=== PATIENT | male | born 1945 | race African-American/Black ===

== ENCOUNTER 2018-01-03 19:23 | Emergency (ER) | payer OTHER ==
[~2018-01-03] VITALS: Ht 188 cm; Wt 86.2 kg
[2018-01-03] MEDS ORDERED: FUROSEMIDE20 M1 ORAL (19:40)
[2018-01-03] MEDS ORDERED: JANUVIA25 MG ORAL (19:40)
[2018-01-03] MEDS ORDERED: ISOSORBIDE DINIT5 MG ORAL (19:40)
[2018-01-03] MEDS ORDERED: ASPIR-LOW81 MG ORAL (19:40)
[2018-01-03] MEDS ORDERED: METFORMIN HCL1000 M1 ORAL (19:40)
[2018-01-03] MEDS ORDERED: CARVEDILOL12.5 MG ORAL (19:40)
[2018-01-03] MEDS ORDERED: SPIRONOLACTONE25 MG ORAL (19:40)
[2018-01-03] MEDS ORDERED: BENICAR40 MG ORAL (19:40)
[2018-01-03] MEDS ORDERED: POTASSIUM CHLO20 ME2 ORAL (19:40)
--- NOTE | 2018-01-03 19:44 | Emergency Room Report ---
History of Present Illness General Chief Complaint: Chest Pain Present Illness HPI Mr. Harrison is a very pleasant 72-year-old male with history of non-insulin- dependent diabetes and hypertension who presents with chest pain for the last day. He's had right and left-sided chest pain radiating to her left arm. Pain is sharp. Pain is worse with movement. Pain is has persisted for several hours. Pain is moderately severe. Denies shortness of breath or palpitations. Has not had history of NV or coronary artery disease. Possible history of "CHF". He is followed by physician and [facility]. He is has a stress test schedule a marketing content coordinator next month. Family history of cardiac disease. Mother lived to age of 94 with history of lung disease. Siblings are healthy. Allergies: Coded Allergies: No Known Allergies (Unverified , 01/03/18) Patient History Past Medical History: DM, HTN, other - ?CHF Pertinent Family History: none Social History: Reports: alcohol use; Denies: smoking Social History Narrative recently , moved to [place] from [facility] a few months prior, retired electrician supervisor [employer] Review of Systems Constitutional: Denies: fever, malaise Cardiovascular: Reports: chest pain All Other Systems: negative except mentioned in HPI Physical Exam Vital Signs Date Time Temp Pulse Resp B/P (MAP) Pulse Ox O2 Delivery O2 Flow Rate FiO2 01/03/18 19:33 97.7 76 14 140/82 100 Room Air 97.7 Sp02 EP Interpretation: reviewed, normal General Appearance: no apparent distress, alert, GCS 15, non-toxic, other - looks younger than stated age Head: normocephalic, atraumatic Eyes: bilateral eye normal inspection ENT: hearing grossly normal, normal pharynx, no angioedema, normal voice Neck: full range of motion, supple, no meningismus, no bony tend, supple/symm/ no masses Respiratory: chest non-tender, lungs clear, normal breath sounds, no rhonchi, no respiratory distress, no retraction, no accessory muscle use, speaking full sentences Cardiovascular #1: regular rate, rhythm, no edema, no gallop, no JVD, no murmur , no rub Cardiovascular #2: 2+ radial (R), 2+ radial (L), 2+ dorsalis pedis (R), 2+ dorsalis pedis (L) Gastrointestinal: normal bowel sounds, non tender, soft, no bruit, non- distended, no guarding, no rebound Rectal: deferred Genitourinary: normal inspection Musculoskeletal: back normal, gait/station normal, normal range of motion, non- tender, calf tenderness Neurologic: normal inspection, alert, oriented x3, responsive, motor strength/ tone normal, sensory intact, normal gait, speech normal, grossly normal Psychiatric: judgement/insight normal, memory normal, mood/affect normal, other - pleasant articulate smiling Skin: normal color, no rash, warm/dry, well hydrated Medical Decision Making Diagnostic Impression: Primary Impression: Chest pain ER Course Mr. Harrison presents with chest pain. I recommended admission to evaluate for ACS/CAD. Patient politely declined. He and understood instructions to call 911 if symptoms returned. He will see his marketing content coordinator tomorrow if possible Labs Test 01/03/18 19:37 White Blood Count 6.1 K/UL (4.8-10.8) Red Blood Count 4.45 M/UL (4.70-6.10) Hemoglobin 14.4 G/DL (14.2-18.0) Hematocrit 41.9 % (42.0-52.0) Mean Corpuscular Volume 94 FL (80-99) Mean Corpuscular Hemoglobin 32.3 PG (27.0-31.0) Mean Corpuscular Hemoglobin Concent 34.3 G/DL (32.0-36.0) Red Cell Distribution Width 11.0 % (11.6-14.8) Platelet Count 182 K/UL (150-450) Mean Platelet Volume 7.0 FL (6.5-10.1) Neutrophils (%) (Auto) 57.9 % (45.0-75.0) Lymphocytes (%) (Auto) 25.9 % (20.0-45.0) Monocytes (%) (Auto) 11.0 % (1.0-10.0) Eosinophils (%) (Auto) 4.1 % (0.0-3.0) Basophils (%) (Auto) 1.1 % (0.0-2.0) Sodium Level 142 MMOL/L (136-145) Potassium Level 4.0 MMOL/L (3.5-5.1) Chloride Level 105 MMOL/L (98-107) Carbon Dioxide Level 29 MMOL/L (21-32) Anion Gap 9 mmol/L (5-15) Blood Urea Nitrogen 21 mg/dL (7-18) Creatinine 1.4 MG/DL (0.55-1.30) Estimat Glomerular Filtration Rate mL/min (>60) Glucose Level 89 MG/DL (74-106) Calcium Level 9.7 MG/DL (8.5-10.1) Total Bilirubin 0.7 MG/DL (0.2-1.0) Aspartate Amino Transf (AST/SGOT) 33 U/L (15-37) Alanine Aminotransferase (ALT/SGPT) 39 U/L (12-78) Alkaline Phosphatase 106 U/L (46-116) Troponin I 1.133 ng/mL (0.000-0.056) Total Protein 7.9 G/DL (6.4-8.2) Albumin 4.1 G/DL (3.4-5.0) Globulin 3.8 g/dL Albumin/Globulin Ratio 1.1 (1.0-2.7) Lab Results Impression elevated trop EKG Diagnostic Results EKG Time: 19:32 Rate: normal Rhythm: NSR ST Segments: no acute changes Other Impression rate 70 bpm nl axis prolonged AV interval nl QT interval no ST elevation no signs of ischemia poor R wave progression Chest X-Ray Diagnostic Results Chest X-Ray Diagnostic Results : Chest X-Ray Ordered: Yes # of Views/Limited/Complete: 1 View Indication: Chest Pain Interpretation: no consolidation, no effusion, no pneumothorax, no acute cardiopulmonary disease Impression: No acute disease Electronically Signed by: radiology interpreted by Last Vital Signs Date Time Temp Pulse Resp B/P (MAP) Pulse Ox O2 Delivery O2 Flow Rate FiO2 01/03/18 19:33 97.7 76 14 140/82 100 Room Air 97.7 Disposition: AGAINST MEDICAL ADVICE Condition: Stable Valentine Pritchard MD Jan 03, 2018 19:44
[2018-01-03 19:48] VITALS: BP 131/75
[2018-01-03 20:20] LABS: ANION GAP 9 mmol/L (5-15); BLOOD UREA NITROGEN 21 mg/dL (7-18); CALCIUM 9.7 MG/DL (8.5-10.1); CARBON DIOXIDE 29 MMOL/L (21-32); CHLORIDE 105 MMOL/L (98-107); CREATININE 1.4 MG/DL (0.55-1.30); SODIUM 142 MMOL/L (136-145)
[2018-01-03 20:25] LABS: ALANINE AMINOTRANSFERASE 39 U/L (12-78); ALBUMIN 4.1 G/DL (3.4-5.0); ALBUMIN/GLOBULIN RATIO 1.1 (1.0-2.7); ALKALINE PHOSPHATASE 106 U/L (46-116); ASPARTATE AMINO TRANSFERASE 33 U/L (15-37); BILIRUBIN,TOTAL 0.7 MG/DL (0.2-1.0)
[2018-01-03 20:32] LABS: BASOPHILS % (AUTO) 1.1 % (0.0-2.0); EOSINOPHILS % (AUTO) 4.1 % (0.0-3.0); HEMATOCRIT 41.9 % (42.0-52.0); HEMOGLOBIN 14.4 G/DL (14.2-18.0); LYMPHOCYTES % (AUTO) 25.9 % (20.0-45.0); MEAN CORPUSCULAR VOLUME 94 FL (80-99); NEUTROPHILS % (AUTO) 57.9 % (45.0-75.0); PLATELET COUNT 182 K/UL (150-450); RED BLOOD COUNT 4.45 M/UL (4.70-6.10); WHITE BLOOD COUNT 6.1 K/UL (4.8-10.8)
[2018-01-03 20:59] VITALS: BP 125/64
[2018-01-03 21:54] VITALS: BP 122/62
--- NOTE | 2018-01-04 10:37 | Diagnostic Imaging Report ---
Indication: Chest pain Comparison: None A single view chest radiograph was obtained. Findings: Cardiomediastinal appearance is within normal limits for age. The lungs are clear. Pulmonary vascularity is appropriate. The diaphragmatic contour is smooth and costophrenic angles are sharp. No pleural effusions are identified. The bones are unremarkable. Impression: No acute findings
--- NOTE | 2018-01-04 14:51 | Cardiology Report ---
APPROVED REPORT EKG Measurement Heart [id number] Sinus rhythm with 1st degree AV block Possible Left atrial enlargement Septal infarct, age undetermined Abnormal ECG
== END 2018-01-03 21:50 | disposition left against medical advice (07) ==
LOC: EMR 19:55
DX: R07.9 Chest pain, unspecified (principal); I10 Essential (primary) hypertension; E11.9 Type 2 diabetes mellitus without complications
CPT/HCPCS: 36415; 71045; 80053; 84484; 85025; 93005; 99284

== ENCOUNTER 2018-04-19 19:35 | Emergency (ER) | payer OTHER ==
[~2018-04-19] VITALS: Ht 195.6 cm; Wt 101.2 kg
[~2018-04-19 19:35] MED LIST: ASPIR-LOW81 MG ORAL; BENICAR40 MG ORAL; CARVEDILOL12.5 MG ORAL; FUROSEMIDE20 M1 ORAL; ISOSORBIDE DINIT5 MG ORAL; JANUVIA25 MG ORAL; METFORMIN HCL1000 M1 ORAL; POTASSIUM CHLO20 ME2 ORAL; SPIRONOLACTONE25 MG ORAL
--- NOTE | 2018-04-19 19:45 | NUR ---
ED Nurse Note: pt walked in due to dizziness x 2 days and coughing out phlegm, pt took otc cough meds because he thinks he might have reoccuring pneumonia.
[2018-04-19 19:50] VITALS: BP 103/62
[2018-04-19] MEDS ORDERED: Albuterol ud Inhalation HHN ONE (20:00)
--- NOTE | 2018-04-19 20:21 | Emergency Room Report ---
History of Present Illness General Chief Complaint: Dizziness Source: Patient Present Illness HPI 73-year-old male with history of hypertension, diabetes, diastolic heart failure presents with cough with clear sputum production and feels like his chest hurts when he coughs, he reports he had similar episodes couple of years ago when he was diagnosed with pneumonia, he denies fevers, abdominal pain, vomiting, leg swelling, recent travel, and other complaints. Allergies: Coded Allergies: No Known Allergies (Unverified , 01/03/18) Patient History Past Medical History: see triage record Reviewed Nursing Documentation: PMH: Agreed; PSxH: Agreed Nursing Documentation-PMH Hx Cardiac Problems: Yes Hx Hypertension: Yes Hx Diabetes: Yes Review of Systems All Other Systems: negative except mentioned in HPI Physical Exam Vital Signs Date Time Temp Pulse Resp B/P (MAP) Pulse Ox O2 Delivery O2 Flow Rate FiO2 04/19/18 19:39 97.7 50 16 103/62 96 Room Air 04/19/18 20:11 21 Sp02 EP Interpretation: reviewed, normal General Appearance: no apparent distress, alert, non-toxic Head: normocephalic Eyes: bilateral eye normal inspection, bilateral eye PERRL, bilateral eye EOMI ENT: normal ENT inspection, hearing grossly normal, normal pharynx, no angioedema, normal voice, moist mucus membranes Neck: normal inspection, full range of motion, supple, supple/symm/no masses Respiratory: chest non-tender, lungs clear, normal breath sounds, no rhonchi, no respiratory distress, no retraction, no accessory muscle use, wheezing, chest symmetrical, palpation of chest normal Cardiovascular #1: normal peripheral pulses, regular rate, rhythm, no edema, no gallop, no JVD, no murmur, no rub Cardiovascular #2: 2+ radial (R), 2+ radial (L) Gastrointestinal: normal inspection, non tender, soft, no mass, no guarding, no rebound Rectal: deferred Genitourinary: normal inspection, no CVA tenderness Musculoskeletal: back normal, gait/station normal, normal range of motion, non- tender, no calf tenderness Neurologic: alert, responsive, wet sander III-XII nml as tested, motor strength/tone normal, sensory intact, speech normal Psychiatric: judgement/insight normal, memory normal, mood/affect normal Skin: normal color, no rash, warm/dry, normal turgor Lymphatic: no adenopathy Medical Decision Making Diagnostic Impression: Primary Impression: CHF (congestive heart failure) Additional Impression: Pneumonia ER Course Patient's chest x-ray with possible right perihilar opacity, concerning for early pneumonia, however he is very well-appearing, I think stable for discharge. He was given a neb rx, and not having active chest pain, but pro bnp slightly elevated, troponin 0.9, with creatinine 1.7, patient given aspirin , lasix, levaquin, admitted to Dr. Vargas. EKG Diagnostic Results EKG Time: 20:00 EP Interpretation: no stemi Rate: bradycardiac Rhythm: NSR ST Segments: no acute changes ASA given to the pt in ED: Yes Rhythm Strip Diag. Results Rhythm Strip Time: 20:19 EP Interpretation: yes Rate: 50 Rhythm: NSR, no PVC's, no ectopy Chest X-Ray Diagnostic Results Chest X-Ray Diagnostic Results : Chest X-Ray Ordered: Yes # of Views/Limited/Complete: 1 View Indication: Chest Pain EP Interpretation: Yes Interpretation: no effusion, no pneumothorax, no acute cardiopulmonary disease, other - R perihilar fullness Impression: Other - R sided pna Electronically Signed by: Marilee Aquino MD Last Vital Signs Date Time Temp Pulse Resp B/P (MAP) Pulse Ox O2 Delivery O2 Flow Rate FiO2 04/19/18 20:12 55 18 Room Air 21 04/19/18 20:11 98 04/19/18 19:39 97.7 103/62 Disposition: ADMITTED INPATIENT MARILEE AQUINO M.D Apr 19, 2018 20:21
[2018-04-19 20:40] LABS: BASOPHILS % (AUTO) 1.3 % (0.0-2.0); EOSINOPHILS % (AUTO) 6.2 % (0.0-3.0); HEMATOCRIT 38.4 % (42.0-52.0); HEMOGLOBIN 12.5 G/DL (14.2-18.0); LYMPHOCYTES % (AUTO) 31.1 % (20.0-45.0); MEAN CORPUSCULAR VOLUME 94 FL (80-99); MONOCYTES % (AUTO) 8.7 % (1.0-10.0); NEUTROPHILS % (AUTO) 52.7 % (45.0-75.0); PLATELET COUNT 204 K/UL (150-450); RED BLOOD COUNT 4.08 M/UL (4.70-6.10); RED CELL DISTRIBUTION WIDTH 11.4 % (11.6-14.8); WHITE BLOOD COUNT 5.3 K/UL (4.8-10.8)
[2018-04-19 20:41] LABS: INR 1.1 (0.9-1.1)
[2018-04-19 20:46] LABS: ANION GAP 8 mmol/L (5-15); BLOOD UREA NITROGEN 20 mg/dL (7-18); CALCIUM 9.9 MG/DL (8.5-10.1); CARBON DIOXIDE 30 MMOL/L (21-32); CHLORIDE 104 MMOL/L (98-107); CREATININE 1.7 MG/DL (0.55-1.30); POTASSIUM 4.2 MMOL/L (3.5-5.1); SODIUM 142 MMOL/L (136-145)
[2018-04-19 20:58] LABS: ALANINE AMINOTRANSFERASE 21 U/L (12-78); ALBUMIN 3.9 G/DL (3.4-5.0); ALBUMIN/GLOBULIN RATIO 1.2 (1.0-2.7); ALKALINE PHOSPHATASE 85 U/L (46-116); ASPARTATE AMINO TRANSFERASE 18 U/L (15-37); BILIRUBIN,TOTAL 0.6 MG/DL (0.2-1.0)
[2018-04-19] MEDS ORDERED: Aspirin Baby 81mg ORAL ONE (21:15)
--- NOTE | 2018-04-19 21:21 | NUR ---
Note jay jay in EDM - 04/19/18 at 2132 by IDRIS ED Nurse Note: PT is transfered to [facility] with ESTEVAN NERI. pt has been transfered with all belongings. pt status, condition and vital signs is reported to [facility] prior to transfer and is reported to reciving RN. pt is stable for transfer.
[2018-04-19] MEDS ORDERED: LEVAQUIN750 MG ORAL (21:27)
[2018-04-19 21:30] VITALS: BP 110/63
--- NOTE | 2018-04-19 21:30 | NUR ---
ED Nurse Note: PT is DC per ERMD order. pt is alert and oriented times 4. pt left with all belongings, DC notes and prescriptions. pt understood and is able to teach back DC notes and prescriptons. pt vital signs, status and condition is reported to ERMD prior to DC. pt is instructed to report to primary MD as soon as possible. pt is instructed to return to ER as soon as possible if any variance in condition. pt is able to walk with steady gait. ID band removed. PT has also signed against medical advice, pt understood the risk of against medical advice.
--- NOTE | 2018-04-20 10:36 | Diagnostic Imaging Report ---
Indication: Cough Technique: One view of the chest Comparison: 01/03/2018 Findings: Less optimal inspiration than previously. The heart appears enlarged, but this is not evident previously and is probably an artifact of the poor inspiration. Lungs and pleural spaces are clear. Impression: Hypoventilatory exam. Apparent cardiomegaly, likely an artifact of such No acute process otherwise
--- NOTE | 2018-04-20 18:25 | Cardiology Report ---
APPROVED REPORT EKG Measurement Heart [id number] NM [id number] Sinus bradycardia with 1st degree AV block Possible Left atrial enlargement Septal infarct, age undetermined Abnormal ECG
== END 2018-04-19 21:30 | disposition left against medical advice (07) ==
LOC: EMR 20:17 → 2E 20:35 → UNDOADMIN 20:35 → EDBEDREQ 21:08
DX: I11.0 Hypertensive heart disease with heart failure (principal); I50.9 Heart failure, unspecified; E11.9 Type 2 diabetes mellitus without complications; J18.9 Pneumonia, unspecified organism
CPT/HCPCS: 36415; 71045; 80053; 83880; 84484; 85025; 85610; 85730; 93005; 94640; 94664; 96365; 96375; 99285